=== PATIENT | female | born 1945 | race Caucasian/White ===

== ENCOUNTER → 2016-09-23 | Day surgery (SDC) | payer OTHER, MEDICARE ==
[~2016-09-23] VITALS: Ht 172.7 cm; Wt 87.5 kg
--- NOTE | 2016-09-23 11:58 | Operative Report ---
Operative/Inv Procedure Report Surgery Date: 09/23/16 Name of Procedure: Left lumpectomy with wire localization Pre-Operative Diagnosis: Left breast DCIS Post-Operative Diagnosis: Same Estimated Blood Loss: less than 50ml Surgeon/Photovoltaic Panel Installer: FAISAL ROBERT MD Anesthesia: laryngeal mask airway Specimens: Left lumpectomy, medial margin, cranial margin, lateral margin, anterior margin Operative/Procedure Note Note: Patient brought to the operating room on 09/23/2016 and placed supine on table. Preoperative wire localization was performed most films were reviewed. Incision was planned. The location of the tumor was in the upper inner quadrant, and due to cosmesis and inframammary incision was planned. Local anesthesia 1% lidocaine exception Marcaine was given an incision was made in the inframammary fold. Dissection in the prepectoral plane was undertaken up to the upper inner quadrant. The area of concern was grasped using an Allis clamp. The wires were brought into the incision. Anterior dissection then proceeded to dissect the area of the clips. Specimen was removed and marked for orientation using margin map. Intraoperative x-ray confirmed the presence of both clips in the specimen. Additional margins were taken in the medial, lateral, cranial, and skin positions. No additional inferior or deep tissue was taken due to the dissection starting in the inframammary fold, and the deep margin being the pectoralis muscle. A 3 x 3 low-profile BioSorb marker was placed in the area where the known DCIS was. Adjacent breast tissue was fastened to the marker using Maxon sutures. Deep tissue was then approximated the upper portion of the breast using Vicryl sutures. The skin was closed using a running Monocryl subcutaneous color stitch. Surgical shoulders were applied, and patient transferred to the recovery room in satisfactory condition having tolerated the procedure well.
--- NOTE | 2016-09-23 16:45 | MAMMOGRAPHY REPORT ---
EXAMINATION: MM PREOPERATIVE LOCALIZATION BREAST, LEFT (x2) CLINICAL INFORMATION: A 71-year-old female with DCIS, diagnosed on stereotactic and ultrasound-guided biopsy (at upper inner quadrant calcifications and mass at left subareolar region, 5-6 cm from the nipple) done on 09/01/2016. Preoperative needle localization of both these 2 sites is requested. TECHNIQUE: After the details of the procedure, as well as the risks, benefits and alternatives to the procedure, were explained to the patient in detail, and all of her questions were answered, preoperative needle localization was performed. Mammographic imaging of the left breast in the ML projection confirms the presence of 2 tissue markers (ribbon and top-hat shaped metallic clips) at the site of the prior stereotactic and ultrasound-guided biopsies. The skin of the left breast was then cleansed with sterile solution. Using mammographic guidance, aseptic technique and 2% 10 mL lidocaine for local anesthesia, a 7 cm Kopans needle-wire system was advanced into the breast from a medial approach. Initially the posterior, superior tissue marker from stereotactic biopsy was targeted and subsequently the anterior inferior tissue marker from ultrasound-guided biopsy was targeted using similar technique and using a similar 7 cm Kopans needle wire system. Orthogonal views were then obtained. Final adjustments of the both needle tips position were made, and the wires deployed. The needles were taken out. The patient tolerated the procedure well, and was discharged from the department of radiology in good stable condition. The images were appropriately labelled. 2 separate worksheets were appropriately filled out and was sent with the patient to the OR. IMPRESSION: Successful mammographically-guided preoperative needle localizations of the stereotactically placed tissue marker at upper outer quadrant of the left breast and sonographically placed tissue marker in the retroareolar region of the left breast, as described above. EXAMINATION: MM NEEDLE LOCALIZATION SPECIMEN FROM BREAST, LEFT TECHNIQUE: Single radiograph of the excised breast tissue is performed. FINDINGS: The specimen shows the both hook wires are delivered intact. The biopsy clip markers are identified in the specimen. IMPRESSION: Successful needle localization of both stereotactically and sonographically biopsy-proved DCIS of the left breast. Results were called to Dr. Lujan in the operating room at the time of imaging. The histology report is pending.
== END ==
LOC: STS 07:00
DX: D05.02 Lobular carcinoma in situ of left breast (principal); Z85.3 Personal history of malignant neoplasm of breast
CPT/HCPCS: 88305; 88307; C9728; J0690; J2001; J2250